=== PATIENT | female | born 1990 | race Caucasian/White ===

== ENCOUNTER 2022-05-14 21:01 | Emergency (ER) | payer SELFPAY ==
[2022-05-14] VITALS (8 sets, daily range): BP systolic 105–141; BP diastolic 67–97; PULSE 57–77; RESP 17–22; TEMP 36.7; O2SAT 100
--- NOTE | 2022-05-14 21:32 | ED.ALLEREA ---
HPI - Allergic Reaction General Chief complaint: Allergic Reaction Stated complaint: allergic reaction Time Seen by Provider: 05/14/22 21:17 History of Present Illness HPI narrative: 31-year-old female presenting to the emergency department for evaluation of an allergic reaction. Patient states that she had onset of itching and some lip swelling with associated nausea and vomiting approximate 1 hour prior to arrival. Patient states that at approximately 5 PM she did take a diclofenac. Patient laid down for a nap and woke up with the symptoms. Patient does have a prior history of allergic reaction in March. Patient is unsure of what triggered the allergic reaction at that time. Patient does not have a primary care physician and has not had follow-up with an window glass cutter off. Patient denies any swelling of her tongue or airway. Patient denies any associated shortness of breath. Patient denies any difficulty breathing or swallowing. Patient does have some mild urticaria and is scratching in the ED. Patient was prescribed an EpiPen and Zyrtec for her prior allergic reaction. Patient did not use the EpiPen's and did take Zyrtec yesterday but has not taken any today. Related Data Allergies Allergy/AdvReac Type Severity Reaction Status Date / Time No Known Allergies Allergy Verified 05/14/22 21:14 Review of Systems Review of Systems: CONSTITUTIONAL: See HPI EYES: Denies visual changes, redness, or discharge. ENT: See HPI CARDIOVASCULAR: Denies chest pain, palpitations, or edema. RESPIRATORY: Denies cough or dyspnea. GASTROINTESTINAL: Denies abdominal pain, nausea, vomiting, or diarrhea. GENITOURINARY: Denies dysuria or hematuria. SKIN: Denies rash or itching. MUSCULOSKELETAL: Denies back pain, joint pain, or myalgia. NEUROLOGIC: Denies headache, numbness, or weakness. PSYCHIATRIC: Denies anxiety or depression. Exam Narrative: APPEARANCE: Well appearing, no pain, no distress, well-nourished. HEAD: normocephalic, atraumatic. EYES: PERRLA/EOMI, conjunctivae clear. NOSE: Normal no drainage EARS:TMS clear with good light reflex. THROAT: Pharynx clear, no exudate. NECK: Supple. No adenopathy, no masses. RESPIRATORY: Airway patent, respirations nonlabored. Clear to auscultation bilaterally, no rales, rhonchi, wheezing. CARDIOVASCULAR: Regular rate and rhythm without murmurs rubs or gallops. ABDOMINAL: Soft, nontender, nondistended, normal bowel sounds MUSCULOSKELETAL: Moves all extremities. Strength/ROM intact, No edema, No calf tenderness. NEURO: Alert. Cranial nerves II through XII intact. Good gait. Good coordination SKIN: Mild urticaria on chest PSYCHIATRIC: Normal affect/mood. Course Course Emergency Course: Patient reports he does feel improved with treatment. Patient was started on penicillin for 5 days. Patient was gradual close follow-up with her primary care physician. Vital Signs Vital signs: Vital Signs Temperature 98.0 F 05/14/22 21:07 Pulse Rate 75 05/14/22 21:07 Respiratory Rate 22 H 05/14/22 21:07 Blood Pressure 141/97 H 05/14/22 21:07 Pulse Oximetry 100 05/14/22 21:07 Oxygen Delivery Room Air 05/14/22 21:07 Temperature 98.0 F 05/14/22 21:07 Pulse Rate 60 05/14/22 23:01 Respiratory Rate 19 05/14/22 23:01 Blood Pressure 105/68 05/14/22 23:01 Pulse Oximetry 100 05/14/22 23:01 Oxygen Delivery Room Air 05/14/22 21:22 Discharge Plan Discharge Clinical Impression: Allergic reaction Patient Disposition: Home, Self-Care Condition: Stable Instructions: Antibiotic Form, Allergies (ED) Additional Instructions: Prednisone as directed for the next 5 days. Benadryl as needed for intermittent rashing. Have close follow-up with your primary care physician. Prescriptions: New prednisone 50 mg tablet 50 mg PO DAILY 5 Days Qty: 5 0RF Follow-up/Referrals: PHYSICIAN,AEROSPACE TECHNICIAN [Primary Care Provider] - Annamarie Larry DO [Physician] -
[2022-05-14] MEDS: methylPREDNISolone SOD SUCC 125 MG VIAL IV PUSH (21:43)
[2022-05-14] MEDS: diphenhydrAMINE HCl INJ 50 MG/ML VIAL IV PUSH (21:44)
[2022-05-14] MEDS: FAMOTIDINE 20 MG/2 ML VIAL IV PUSH (21:45)
== END 2022-05-14 23:11 | disposition home or self-care (01) ==
PROVIDERS: Emergency Provider Emergency Medicine
DX: T78.40XA Allergy, unspecified, initial encounter (principal)
CPT/HCPCS: 96374; 96375; 99284; J1200; J2930

== ENCOUNTER 2024-07-17 11:20 | Emergency (ER) | payer SELFPAY ==
--- NOTE | ~2024-07-17 | CT_ITS ---
EXAMINATION: CT abdomen pelvis w con DATE: 07/17/2024 14:36 INDICATION: Abdominal pain. TECHNIQUE: Computed tomography (CT) of the abdomen and pelvis was performed with 100 mL Omnipaque 350 intravenous contrast. Automated exposure control and iterative reconstruction technique were employe d. The dose-length product was 480.51 mGy-cm. COMPARISON: Pelvis ultrasound 07/17/2024 FINDINGS: The visualized portions of the lung bases demonstrate mild atelectasis. There are trace ple ural effusions. The heart size is normal. No pericardial effusion. The liver is normal. The gallbladd er is distended. The spleen, pancreas, adrenal glands, and kidneys are normal. There is a 2.1 cm fibr oid in the uterus. There is a 2.7 cm corpus luteum cyst in left ovary. There are no dilated loops of bowel. The appendix is normal. There are no pathologically enlarged lymph nodes. There is physiologic fluid in the pelvis. The bones are unremarkable. IMPRESSION: 1. Gallbladder distention, which may be secondary to fasting. Correlate with physical exam to exclude acute cholecystitis. 2. Uterine fibroid. Reviewed, dictated and finalized at location A. IMPRESSION: 1. Gallbladder distention, which may be secondary to fasting. Correlate with ph ysical exam to exclude acute cholecystitis. 2. Uterine fibroid.
--- NOTE | ~2024-07-17 | US_ITS ---
EXAMINATION: US pelvic complete w TV DATE: 07/17/2024 13:15 INDICATION: Suprapubic and left lower quadrant abdominal pain TECHNIQUE: Multiple transabdominal and endovaginal sonographic images of the pelvis were obtained. COMPARISON: None. FINDINGS: The uterus measures 9.6 x 4.5 x 6.4 cm. The endometrial complex measures 11 mm in thickness. There a re a a couple anechoic nabothian cysts at the cervix the largest measuring 8mm in maximal diameter. 1 .6 x 1.3 x 1.0 cm hypoechoic nodule along the periphery of the anterior uterine fundus consistent wit h a subserosal fibroid. The right ovary measures 2.4 x 1.4 x 1.9 cm. The left ovary measures 2.9 x 2.6 x 3.9 cm. There is a s ubtle poorly defined hypoechoic likely cystic lesion in the left ovary measuring approximately 1.6 cm in maximal diameter. Vascular flow is identified in both ovaries on color Doppler most prominent at the periphery of the cystic left ovarian lesion which suggests a possible corpus luteum cyst. There is no free fluid in the pelvis. IMPRESSION: 1. Increased vascular flow in the left ovary at the periphery of a 1.6 cm likely corpus luteum cyst. 2. 1.6 cm likely subserosal fibroid along the anterior uterine fundus. Reviewed, dictated and finalized at location A. IMPRESSION: 1. Increased vascular flow in the left ovary at the periphery of a 1.6 cm likel y corpus luteum cyst. 2. 1.6 cm likely subserosal fibroid along the anterior uterine fundus.
[2024-07-17 11:26] VITALS: BP 134/69; PULSE 72; RESP 16; TEMP 36.6; O2SAT 97
[2024-07-17 11:41] VITALS: BP 130/81; PULSE 64; RESP 13; O2SAT 100
[2024-07-17 11:46] VITALS: BP 117/78; PULSE 66; RESP 13; O2SAT 100
[2024-07-17 12:31] VITALS: BP 119/69; PULSE 57; RESP 18; O2SAT 100
[2024-07-17] MEDS: ONDANSETRON INJ 4 MG/2 ML VIAL IV PUSH (13:10)
[2024-07-17] MEDS: MORPHINE SULFATE (*CRX) 4 MG/ML INJ IV PUSH (13:11)
[2024-07-17] MEDS: SODIUM CHLORIDE 0.9% IV 1,000 ML 999 ML IV CONT (13:13)
[2024-07-17 13:15] LABS: Basophils Percent Auto 0.4 % (0.2-1.2); Eosinophils Percent Auto 0.4 % (0-4.4); Hematocrit 37.6 % (37.0-47.0); Hemoglobin 11.3 g/dL (12.0-15.0); Immature Granulocyte Absolute 0.03 K/mm3 (0.00-0.031); Immature Granulocyte Percent A 0.4 % (0-0.5); Lymphocytes Absolute Auto 1.97 K/mm3 (0.9-3.2); Lymphocytes Percent Auto 23.9 % (18.3-44.2); Mean Corpuscular HGB Conc 30.1 g/dl (32-36); Mean Corpuscular Hemoglobin 24.7 pg (26-34); Mean Corpuscular Volume 82.3 fl (80-100); Mean Platelet Volume 12.4 fl (7.4-10.4); Monocytes Absolute Auto 0.5 K/mm3 (0.1-0.6); Monocytes Percent Auto 5.7 % (2.6-8.5); Neutrophils Absolute Auto 5.7 K/mm3 (1.3-6.7); Neutrophils Percent Auto 69.2 % (45.5-73.1); Platelet Count Result 221 k/mm3 (150-375); Red Blood Count 4.57 M/mm3 (4.2-5.4); Red Cell Distribution Width 14.1 % (11.5-14.5); White Blood Count 8.2 K/mm3 (4.5-10.0)
[2024-07-17 13:28] LABS: Alanine Aminotransferase 15 U/L (6-35); Albumin Level 4.5 g/dL (3.5-5.1); Alkaline Phosphatase 45 U/L (38-126); Anion Gap 12 mmol/L (4-12); Aspartate Amino Transferase 22 U/L (14-36); Bilirubin,Total 0.4 mg/dL (0.2-1.3); Blood Urea Nitrogen 9 mg/dL (7-17); Calcium 9.2 mg/dL (8.4-10.2); Carbon Dioxide 26 mmol/L (22-30); Chloride 100 mmol/L (98-107); Estimated CRCL calculation 90 ml/min; Estimated Glomerular Filt Rate > 60; Glucose 99 mg/dL (65-110); Lactic Acid Reflex 0.8 mmol/L (0.7-2.0); Lipase 78 U/L (23-300); Potassium 4.3 mmol/L (3.4-5.0); Sodium 138 mmol/L (137-145)
--- NOTE | 2024-07-17 13:35 | ED.ABDPAIN ---
HPI - Abdominal Pain General Chief Complaint: Abdominal Pain Stated Complaint: Ovarian Cyst Pain Time Seen by Provider: 07/17/24 11:40 History of Present Illness HPI narrative: 33-year-old Beninese-speaking female presents emergency department for abdominal pain for approximately 1 week. Patient is Beninese speaking, general operator is used at bedside. Patient states her pain is in her lower abdomen. She went to [facility] in [place] on 07/13. She brought her paperwork with her which is reviewed at bedside. She had a CT abdomen pelvis With contrast which showed no evidence of acute intra-abdominal or pelvic process with evidence of a possible uterine fibroid and a small corpus luteal cyst in the left ovary. An ultrasound was then obtained which shows no acute abnormalities, the right ovary was not visualized. The patient was discharged home with approximate which she states she has been using without improvement. She states her symptoms have significantly worsened which prompted her to come to the ED today. She reports nausea and vomiting, subjective fevers and dysuria. States her LMP was 07/02/2024. Denies vaginal discharge or concern for STDs. Endorses a history of , otherwise no abdominal surgeries. Patient states she was told she had cysts on her ovaries when she was seen at [facility]. She denies vaginal discharge or concern versus STDs. States she has been with 1 sexual partner in the past 6 months. Related Data Allergies Allergy/AdvReac Type Severity Reaction Status Date / Time No Known Allergies Allergy Verified 07/17/24 11:32 Review of Systems Review of Systems: All systems reviewed & are unremarkable except as noted in HPI and below Exam Narrative: GENERAL: tearful, appears uncomfortable HEAD: Normocephalic, atraumatic. EYES: PERRLA and EOMI. ENT: Nares clear, no rhinorrhea or epistaxis. Mucous membranes moist. NECK: Supple. CHEST: Clear to auscultation. No respiratory distress. HEART: Regular rate and rhythm. No murmur heard. Normal peripheral pulses. ABDOMEN: normoactive bowel sounds. Abdomen soft with tenderness To the suprapubic region and left lower quadrant with voluntary guarding. No rebound or rigidity. No significant CVA tenderness. EXTREMITIES: Normal range of motion. No edema. SKIN: Warm, dry, no rash. NEURO: No focal deficits. Alert and oriented x3 Course Vital Signs Vital signs: Vital Signs Temperature 97.9 F 07/17/24 11:26 Pulse Rate 72 07/17/24 11:26 Respiratory Rate 16 07/17/24 11:26 Blood Pressure 134/69 07/17/24 11:26 Pulse Oximetry 97 07/17/24 11:26 Oxygen Delivery Room Air 07/17/24 11:26 Temperature 97.9 F 07/17/24 11:26 Pulse Rate 72 07/17/24 11:26 Respiratory Rate 16 07/17/24 11:26 Blood Pressure 134/69 07/17/24 11:26 Pulse Oximetry 97 07/17/24 11:26 Oxygen Delivery Room Air 07/17/24 11:26 MDM - Abdominal Pain MDM Narrative Medical decision making narrative: 33-year-old female presents to the emergency department for abdominal pain, nausea and vomiting for approximately 1 week. She is evaluated at [facility] ED on 07/13 for she underwent a CT abdomen pelvis and pelvic ultrasound which were largely unremarkable. Today vitals are stable. She is tearful and uncomfortable appearing on exam. Abdomen soft with Tenderness to the suprapubic and left lower quadrant with voluntary guarding. Will obtain lab work, pelvic ultrasound and CT abdomen pelvis. CBC without leukocytosis. Hemoglobin 11.3 with normal MCV. No prior for comparison. Chemistries are unremarkable. LFTs are normal. Lipase is normal. UA is unremarkable without hematuria or infection. is negative. Lactic acid normal at 0.8. Pelvic ultrasound shows increased vascular flow in the left over the periphery of 1.6 cm likely corpus luteal cyst which normal radiologic evidence of a corpus luteal cyst as confirmed with th
[2024-07-17 13:51] VITALS: BP 113/86; PULSE 60; RESP 12; O2SAT 100
[2024-07-17 13:54] LABS: BEDSIDEPREGUCG Negative
[2024-07-17 13:57] LABS: Add Urine Microscopic? NO; Appearance Urine Clear (Clear); Bilirubin Urine Negative (Negative); Blood Urine Negative (Negative); Color Urine Yellow (Yellow); Glucose Urine UA Negative (Negative); Ketones Urine Negative (Negative); Leukocyte Esterase Ur Negative LEU/UL (Negative); Nitrate Urine Negative (Negative); Protein Urine Negative (Negative); Specific Grav Ur 1.009 (1.001-1.035); Urobilinogen Urine 0.2 mg/dL (<2.0); pH Urine 5.5 (5.0-9.0)
[2024-07-17] MEDS: KETOROLAC 15 MG/ML VIAL (*BKC) IV PUSH (15:11)
[2024-07-17] MEDS: HYDROmorphone HCL INJ (*CRX) 1 MG/ML SYR 0.5 MG IV PUSH (15:37)
== END 2024-07-17 15:56 | disposition home or self-care (01) ==
PROVIDERS: Emergency Provider Physician Assistant
DX: N83.12 Corpus luteum cyst of left ovary (principal); D25.2 Subserosal leiomyoma of uterus
CPT/HCPCS: 36415; 74177; 76830; 76856; 80053; 81003; 81025; 83605; 83690; 85025; 96361; 96374; 96375; 99284; J1170; J1885; J2270; J2405; J7030; Q9967